=== PATIENT | female | born 1955 | race American Indian/Alaskan Native ===

== ENCOUNTER 2017-04-06 21:25 | Emergency (ER) | payer SELFPAY ==
--- NOTE | 2017-04-06 22:32 | XRay Report ---
FINAL REPORT EXAM: XR KNEE 3V RT HISTORY: fall, RIGHT KNEE pain, send for report TECHNIQUE: Right knee three views 3 images PRIORS: None. FINDINGS: Bone mineralization appears within normal limits. No acute fracture or subluxation is identified. No gross abnormality is seen in the soft tissues. No joint effusion is seen. IMPRESSION: 1. No acute osseous abnormality is identified.
--- NOTE | 2017-04-06 22:33 | XRay Report ---
FINAL REPORT EXAM: XR WRIST 3 RT HISTORY: fall, RIGHT WRIST pain, send for report TECHNIQUE: Right wrist four views 4 images PRIORS: None. FINDINGS: Bone mineralization appears within normal limits. No acute fracture or subluxation is identified. No gross abnormality is seen in the soft tissues. IMPRESSION: 1. No acute osseous abnormality is identified.If symptoms persist, consider repeat study in 10-14 days to assess for a currently radiographically occult fracture.
[2017-04-07 00:31] VITALS: BP 141/83
--- NOTE | 2017-04-07 01:00 | Emergency Department Report ---
ED Fall HPI - General Chief Complaint: Fall Stated Complaint: KNEE PAIN Time Seen by Provider: 04/07/17 00:11 Source: patient, family Mode of arrival: Ambulatory - History of Present Illness Initial Comments: Patient reported that she tripped over a rug yesterday and landed on her right knee and wrist. She is complaining of pain to her right knee and wrist without any cut or abrasion. She reports pain is 7 out of 10 to both sites without any numbness or tingling to extremities. Denies Head injury or headache. Back pain or neck pain. Denies any dizziness or blurred vision. She took over-the- counter pain medication but it did not help. MD Complaint: fall Onset/Timin -: days(s) Fall From: standing When Fall Occurred: # days GAMING TABLE [employer]PER[employer] (1) Fall Witnessed: yes, by family Place Fall Occurred: home Loss of Consciousness: none Prolonged Down Time?: no Symptoms Prior to Fall: none Location - Extremities: Right: Forearm (right wrist pain), Knee (right knee pain ) Severity: moderate Severity scale (0 -10): 7 Quality: aching Context: tripped/slipped Associated Symptoms: denies: headache, neck pain, numbness, weakness, chest paint, shortness of breath, abdominal pain, hematuria, unable to walk, lightheaded, vertigo, confusion - Related Data Previous Rx's Medication Instructions Recorded Last Taken Type traMADol [Ultram] 50 mg PO Q6HR PRN #20 tablet 04/07/17 Unknown Rx Allergies Allergy/AdvReac Type Severity Reaction Status Date / Time No Known Allergies Allergy Verified 04/06/17 21:53 ED Review of Systems ROS: Stated complaint: KNEE PAIN Other details as noted in HPI Comment: All other systems reviewed and negative Constitutional: denies: chills, fever Respiratory: no symptoms reported Cardiovascular: denies: chest pain, palpitations, edema, syncope Gastrointestinal: denies: abdominal pain, nausea, vomiting Musculoskeletal: arthralgia. denies: back pain, joint swelling, myalgia Skin: denies: rash Neurological: denies: headache, weakness, numbness, paresthesias, confusion, abnormal gait, vertigo ED Past Medical Hx - Past Medical History Previous Medical History?: Yes Hx Hypertension: Yes Additional medical history: thyroid - Surgical History Past Surgical History?: Yes Additional Surgical History: Bilat foot - Family History Family history: no significant - Social History Smoking Status: Never Smoker Substance Use Type: Marijuana - Medications Home Medications: Home Medications Medication Instructions Recorded Confirmed Last Taken Type traMADol [Ultram] 50 mg PO Q6HR PRN #20 tablet 04/07/17 Unknown Rx ED Physical Exam - General Limitations: No Limitations General appearance: alert, in no apparent distress - Head Head exam: Present: atraumatic, normocephalic, normal inspection - Eye Eye exam: Present: normal appearance, PERRL, EOMI. Absent: nystagmus, periorbital swelling, periorbital tenderness Pupils: Present: normal accommodation - ENT ENT exam: Present: normal exam, normal orophraynx, mucous membranes moist, TM's normal bilaterally - Neck Neck exam: Present: normal inspection, full ROM. Absent: tenderness, meningismus, lymphadenopathy - Expanded Neck Exam Expanded Neck exam: Absent: tenderness, midline deformity, anterior neck swelling, tracheal deviation - Respiratory Respiratory exam: Present: normal lung sounds bilaterally. Absent: respiratory distress, chest wall tenderness - Cardiovascular Cardiovascular Exam: Present: regular rate, normal rhythm, normal heart sounds - GI/Abdominal GI/Abdominal exam: Present: soft, normal bowel sounds. Absent: distended, tenderness, guarding, rebound, rigid - Extremities Exam Extremities exam: Present: normal inspection, full ROM, normal capillary refill , other (patient had full range of motion to all extremities. Reflexes and extend her knee without any difficulties. She has good color, movement, temperature patient extremities.Extremities. No neurovascular compromise. No joint deformity, no Effusion or crepitus.). Absent: tenderness, pedal edema, joint swelling, calf tenderness - Back Exam Back exam: Present: normal inspection, full ROM. Absent: tenderness, CVA tenderness (R), CVA tenderness (L), muscle spasm, paraspinal tenderness, vertebral tenderness, rash noted - Neurological Exam Neurological exam: Present: alert, oriented X3, normal gait, reflexes normal. Absent: motor sensory deficit - Psychiatric Psychiatric exam: Present: normal affect, normal mood - Skin Skin exam: Present: warm, dry, intact, normal color. Absent: rash ED Course Vital Signs 04/06/17 04/06/17 21:44 22:50 Temperature 97.9 F 99.8 F H Pulse Rate 62 68 Respiratory 16 14 Rate Blood Pressure 140/92 Blood Pressure 140/92 141/83 [Right] O2 Sat by Pulse 99 98 Oximetry - Reevaluation(s) Reevaluation #1: 04/07/17 02:41 [place] 5/325 mg 1 tablet in the emergency room for pain. ED Medical Decision Making - Radiology Data Radiology results: report reviewed X-ray of right wrist and right knee reveal no acute fracture or dislocation - Medical Decision Making ED course: I communicated tothe patient had an x-ray of right knee and right wrist was negative for any fracture or dislocation and she is having musculoskeletal pain from falling. Has no swelling to her right knee and right wrist. No snuff box tenderness and no pain with axial manipulation of the right thumb.She voiced understanding of this diagnosis and treatment plan. Patient was given [place] 5/325 one tablet in the emergency room for pain and discharged home to follow up with orthopedic doctor if she continues to have pain. She was given prescription for Ultram. Critical care attestation.: If time is entered above; I have spent that time in minutes in the direct care of this critically ill patient, excluding procedure time. ED Disposition Clinical Impression: Fall from ground level, Arthralgia of multiple joints Disposition: DC-01 TO HOME OR SELFCARE Is pt being admited?: No Does the pt Need Aspirin: No Condition: Stable Instructions: Arthralgia (ED), Knee Exercises (GEN), Knee Pain (ED) Additional Instructions: Please take Ultram as prescribed for pain fpllow up with Orthopedic if necessary. Prescriptions: traMADol [Ultram] 50 mg PO Q6HR PRN #20 tablet PRN Reason: Pain Referrals: PRIMARY CARE, [Primary Care Provider] - 3-5 Days MARINO SHEPPARD MD [Staff Physician] - 3-5 Days Forms: Work/School Release Form(ED)
[2017-04-07] MEDS ORDERED: NORCO 5/325 PO ONE (01:01)
== END 2017-04-07 02:53 | disposition home or self-care (01) ==
LOC: ED 21:25
DX: M25.561 Pain in right knee (principal); M25.531 Pain in right wrist; I10 Essential (primary) hypertension; F12.10 Cannabis abuse, uncomplicated; W18.30XA Fall on same level, unspecified, initial encounter; Y93.9 Activity, unspecified; Y92.9 Unspecified place or not applicable; Y99.9 Unspecified external cause status
CPT/HCPCS: 99283